=== PATIENT | male | born 1990 | race Caucasian/White ===

== ENCOUNTER 2017-07-04 10:00 | Outpatient (CLI) | payer MEDICAID ==
[2017-07-05 09:52] LABS: TEST RESULT REPORT
== END 2017-07-04 10:01 | disposition home or self-care (01) ==
LOC: LAB.S 10:00
PROVIDERS: ATTEND Nurse Practitioner Family
DX: M79.672 Pain in left foot (principal); Z11.3 Encounter for screening for infections with a predominantly sexual mode of transmission
CPT/HCPCS: 36415; 81599; 84550; 86592; 86695; 86696; 86803; 87389; 87491; 87591

== ENCOUNTER 2022-04-14 15:49 | Outpatient (CLI) | payer MEDICAID, OTHER ==
--- NOTE | 2022-04-14 15:00 | XRAY Report ---
PROCEDURE: Wrist 3 View LT INDICATIONS: LEFT WRIST PAIN TECHNIQUE: 3 views of the wrist were acquired. COMPARISON: None FINDINGS: Bones: No fractures or dislocations. No suspicious bony lesions. Scaphoid view: Left foot is intact. Soft tissues: No suspicious soft tissue calcifications. IMPRESSION: No acute wrist fracture or dislocation. No gross soft tissue abnormality. Reviewed by: Perez Jaeger MD on 04/14/2022 2:58 PM PDT Approved by: Perez Jaeger MD on 04/14/2022 2:58 PM PDT Station ID: [id number]
== END 2022-04-14 15:50 | disposition home or self-care (01) ==
LOC: DI.S 15:49
PROVIDERS: ATTEND Physician Assistant Medical
DX: M25.532 Pain in left wrist (principal)